=== PATIENT | female | born 2000 | race African-American/Black ===

== ENCOUNTER 2024-11-22 20:37 | Emergency (ER) | payer OTHER, SELFPAY ==
[2024-11-22 20:42] VITALS: BP 129/74; PULSE 81; RESP 16; TEMP 36.4; O2SAT 100
--- NOTE | 2024-11-23 00:37 | ED_ITS ---
HPI - Anxiety General Chief Complaint: Anxiety Stated Complaint: anxiety Time Seen by Provider: 11/23/24 00:23 History of Present Illness HPI narrative: Patient is a 24-year-old female who presents to the emergency department this evening complaining of increased stress in her life recently since Saritha time. 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 Denies any past medical history of depression or anxiety. States that she has never followed up with a psychiatrist or never been put on anxiety medications. Denies any suicidal homicidal ideations. No additional symptoms or concerns at this time. Related Data Allergies Allergy/AdvReac Type Severity Reaction Status Date / Time No Known Allergies Allergy Unknown Unverified 11/22/24 20:48 Review of Systems Review of Systems: All systems are reviewed and are negative unless stated otherwise in the HPI. Exam Narrative: General: Alert, awake, afebrile, anxious. HEENT: PERRL, no rhinorrhea, no post nasal drip, oropharynx clear. Neck: Trachea midline, no JVD, no lymphadenopathy. Cardiovascular: Regular rate and rhythm, no murmurs, rubs or gallops, no peripheral edema. Respiratory: Clear to auscultation bilaterally, no tachypnea, no wheezing, no rhonchi, no rubs, no respiratory distress. Abdomen: Soft, nontender, nondistended, no rebound, no guarding, no peritoneal signs. Musculoskeletal: No joint swelling or deformity, normal muscle tone. Skin: No rashes or petechia, no signs of infection. Psychiatric: Alert and oriented, normal behavior and judgment for situation. Neurological: Alert and oriented to person, place, and time. Follows all commands. No focal deficits, speech is clear and fluent. Course Vital Signs Vital signs: Vital Signs Temperature 97.5 F L 11/22/24 20:42 Pulse Rate 81 11/22/24 20:42 Respiratory Rate 16 11/22/24 20:42 Blood Pressure 129/74 11/22/24 20:42 Pulse Oximetry 100 11/22/24 20:42 Oxygen Delivery Room Air 11/22/24 20:42 Temperature 97.5 F L 11/22/24 20:42 Pulse Rate 81 11/22/24 20:42 Respiratory Rate 16 11/22/24 20:42 Blood Pressure 129/74 11/22/24 20:42 Pulse Oximetry 100 11/22/24 20:42 Oxygen Delivery Room Air 11/22/24 20:42 MDM - Anxiety MDM Narrative Medical decision making narrative: The patient was evaluated by myself in the emergency department. History is obtained from patient who is an independent historian and physical exam was performed. External medical records were reviewed at this time. Differential diagnosis considerations include anxiety, acute stress reaction, depression. Comorbidities impacting this visit include none. I have evaluated and discussed social determinants of health with the patient that could potentially impact subsequent diagnosis and treatment plans. On repeat assessment of the patient, reevaluation revealed that the patient is doing well and is in no acute distress. Patient symptoms have remained stable since she arrived to our emergency department. Repeat vital signs were all reviewed and noted to be stable. Differential diagnosis and treatment plan were discussed with the patient at bedside. Patient agrees with discussion and after shared medical decision making agrees with discharge. All questions were answered to the patient's satisfaction. Patient was provided with a work note per her request as she feels as though she needs time off to mentally recover. Patient will follow up with her PCP in 3-5 days. Patient was provided with strict return precautions and instructed to return to the emergency department if any new or worsening symptoms develop. The patient was discharged in stable condition. Discharge Plan Discharge Clinical Impression: Acute anxiety Patient Disposition: Home, Self-Care Condition: Stable Instructions: Antibiotic Form, Anxiety (ED) Additional Instructions: Please please follow-up with your family doctor within the next 3-5 days. You may use the prescribed Ativan as needed for panic attacks until you see your primary care physician whom I refer you to a psychiatrist for further evaluation and treatment. Return to the emergency department if any new or worsening symptoms develop. Patient Language: [place] Prescriptions: New lorazepam [Ativan] 0.5 mg tablet 0.5 mg PO DAILY PRN (Reason: anxiety) Qty: 5 0RF Follow-up/Referrals: PHYSICIAN,MANAGING MANAGER [Primary Care Provider] - Stand Alone Forms: Work/School Release IP Time of Disposition: 00:43
[2024-11-23 01:19] VITALS: BP 126/76; PULSE 86; RESP 16; TEMP 36.6; O2SAT 98
== END 2024-11-23 01:20 | disposition home or self-care (01) ==
LOC: ANHED 11-23 00:51
PROVIDERS: Emergency Provider Emergency Medicine
DX: F41.9 Anxiety disorder, unspecified (principal)
CPT/HCPCS: 99283